=== PATIENT | male | born 1990 | race African-American/Black ===

== ENCOUNTER 2025-04-14 15:44 | Emergency (ER) | payer SELFPAY ==
[~2025-04-14] VITALS: Ht 177.8 cm; Wt 90.0 kg
[2025-04-14 15:46] VITALS: O2SAT 98
[2025-04-14] MEDS ORDERED: MAG355OR21 MT (17:01)
[2025-04-14 17:20] VITALS: BP 146/70; PULSE 98; RESP 18; TEMP 36.8; O2SAT 100
== END 2025-04-14 17:35 | disposition home or self-care (01) ==
LOC: ER 15:44
DX: T18.198A Other foreign object in esophagus causing other injury, initial encounter (principal); Z79.899 Other long term (current) drug therapy; Z88.6 Allergy status to analgesic agent; W44.E2XA Non-magnetic metal coin entering into or through a natural orifice, initial encounter; Y93.89 Activity, other specified; Y92.89 Other specified places as the place of occurrence of the external cause; Y99.8 Other external cause status
CPT/HCPCS: 71045; 93005; 99283; A4606

== ENCOUNTER 2025-05-01 19:46 | Emergency (ER) | payer MEDICAID ==
[~2025-05-01] VITALS: Ht 170.2 cm; Wt 78.0 kg
[~2025-05-01 19:46] MED LIST: MAG355OR21 MT
[2025-05-01 19:54] VITALS: O2SAT 99
[2025-05-01 23:04] LABS: BASOPHILS % 1.7 % (0.0-2.0); EOSINOPHILS % 0.4 % (0.0-5.0); HEMATOCRIT. 41.7 % (42.0-52.0); HEMOGLOBIN. 14.3 g/dL (14.0-18.0); LYMPHOCYTES % 37.2 % (20.0-50.0); MEAN CORPUSCULAR HEMOGLOBIN 33.7 pg (28.0-32.0); MEAN CORPUSCULAR HGB CONC 34.3 g/dL (31.0-37.0); MEAN CORPUSCULAR VOLUME 98.3 fL (80.0-94.0); MEAN PLATELET VOLUME 7.6 fl (7.4-10.4); MONOCYTES % 11.7 % (2.0-8.0); PLATELET 263 x1000/uL (130-400); RED BLOOD CELL COUNT 4.24 mill/uL (4.7-6.1); WHITE BLOOD COUNT 4.5 x1000/uL (4.5-11.0)
[2025-05-01 23:12] LABS: CHLORIDE 105 mEq/L (98-107); POTASSIUM 4.1 mEq/L (3.5-5.1); SODIUM 144 mEq/L (136-145)
[2025-05-01 23:13] LABS: CALCIUM 9.5 mg/dL (8.7-10.4); CARBON DIOXIDE 27 mEq/L (21-32)
[2025-05-01 23:18] LABS: CREATININE 1.3 mg/dL (0.6-1.3); ETHANOL BLOOD 228 mg/dL (<10); GLUCOSE 96 mg/dL (70-105); UREA NITROGEN BLOOD 9 mg/dL (9-23)
[2025-05-02] MEDS ORDERED: TETANUS, DIPHTHERIA, PERTUSSIS VAC/PF 0.5ML (>10YR OLD) IM ONE
[2025-05-02] MEDS ORDERED: BACITRACIN ZINC OINT UDPKT TOP ONE
[2025-05-02 04:41] VITALS: BP 106/55; PULSE 104; RESP 18; TEMP 36.7; O2SAT 98
[2025-05-02] MEDS: TETANUS, DIPHTHERIA, PERTUSSIS VAC/PF 0.5ML (>10YR OLD) IM ONE (05:00)
[2025-05-02] MEDS: BACITRACIN ZINC OINT UDPKT TOP SCH (05:01)
== END 2025-05-02 05:26 | disposition home or self-care (01) ==
LOC: ER 19:46
DX: S00.81XA Abrasion of other part of head, initial encounter (principal); F10.129 Alcohol abuse with intoxication, unspecified; R51.9 Headache, unspecified; Z88.6 Allergy status to analgesic agent; X58.XXXA Exposure to other specified factors, initial encounter; Y93.89 Activity, other specified; Y92.481 Parking lot as the place of occurrence of the external cause; Y99.8 Other external cause status; Y90.7 Blood alcohol level of 200-239 mg/100 ml
CPT/HCPCS: 80048; 80320; 85025; 36415; 70450; 99285; 90715; 90471; Z7610; G0480

== ENCOUNTER 2025-09-11 20:51 | Emergency (ER) | payer MEDICAID ==
[~2025-09-11] VITALS: Ht 182.9 cm; Wt 82.0 kg
[2025-09-11] MEDS ORDERED: FENTANYL 2500MCG/250ML PMX 250 ML IV SCH (21:45)
[2025-09-11] MEDS: FLUORESCEIN SODIUM 1MG/STRIP BOTHEYE ONE (22:11)
[2025-09-11] MEDS: TETRACAINE 0.5% OPHTH DROPS 4ML BOTHEYE ONE (22:11)
[2025-09-11 22:22] VITALS: PULSE 112; RESP 12; O2SAT 99
[2025-09-11] MEDS: PROPOFOL 10MG/ML 100ML 100 ML IV SCH (22:34)
[2025-09-11] MEDS: ETOMIDATE 2MG/ML 10ML VIAL IV ONE (22:35)
[2025-09-11] MEDS: ROCURONIUM BROMIDE 10MG/ML VIAL 5ML IV ONE (22:35)
[2025-09-11] MEDS: SODIUM CHLORIDE 0.9% 2,000 ML IV ONE (22:36)
[2025-09-11] MEDS: FENTANYL CITRATE 2,500 MCG in SODIUM CHLORIDE 0.9% 200 ML IV PRN (22:38)
[2025-09-11 22:52] LABS: BASOPHILS % 1.2 % (0.0-2.0); EOSINOPHILS % 0.0 % (0.0-5.0); HEMATOCRIT. 42.0 % (42.0-52.0); HEMOGLOBIN. 14.1 g/dL (14.0-18.0); LYMPHOCYTES % 26.2 % (20.0-50.0); MEAN PLATELET VOLUME 7.7 fl (7.4-10.4); MONOCYTES % 10.0 % (2.0-8.0); NEUTROPHILS % 62.6 % (40.0-76.0); PLATELET 309 x1000/uL (130-400); RED BLOOD CELL COUNT 4.31 mill/uL (4.7-6.1); RED CELL DISTRIBUTION WIDTH 15.1 % (11.6-14.6)
[2025-09-11 22:54] VITALS: PULSE 115; RESP 22; O2SAT 99
[2025-09-11 23:07] LABS: CREATININE 1.3 mg/dL (0.6-1.3); UREA NITROGEN BLOOD 8 mg/dL (9-23)
[2025-09-11 23:25] VITALS: O2SAT 100
[2025-09-11 23:54] VITALS: BP 103/60; PULSE 90; RESP 12; TEMP 36.7; O2SAT 100
[2025-09-12] MEDS ORDERED: IOHEXOL-350 100 ML BOTTLE ONE (00:08)
== END 2025-09-11 22:28 | disposition short-term general hospital (02) ==
LOC: ER 20:51 → CMPBEDREQ 09-13 08:20
DX: S01.112A Laceration without foreign body of left eyelid and periocular area, initial encounter (principal); R51.9 Headache, unspecified; Z88.6 Allergy status to analgesic agent; Z79.899 Other long term (current) drug therapy; Z98.890 Other specified postprocedural states; X58.XXXA Exposure to other specified factors, initial encounter; Y93.89 Activity, other specified; Y92.89 Other specified places as the place of occurrence of the external cause; Y99.8 Other external cause status
CPT/HCPCS: 80048; 80320; 82550; 85025; 36415; 74174; 71275; 70450; 70486; 72125; 72128; 72131; 93005; 94070; 31500; 96365; 96375; 99291; Q9967; J2704; J3490; J7030; Z7610 ×6; 94002; J3010; G0480